=== PATIENT | female | born 1955 | race Caucasian/White ===

== ENCOUNTER 2025-01-07 14:43 | Emergency (ER) | payer MEDICARE, SELFPAY ==
--- NOTE | ~2025-01-07 | CT_ITS ---
CLINICAL HISTORY: head strike, pain, injury CT cervical spine without contrast Comparison: None Findings: Mild multilevel anterolisthesis, degenerative. No fracture. No severe central spinal canal stenosis. No epidural hematoma. Normal thickness of the prevertebral soft tissues. Trace biapical scarring. Impression: No acute findings. This document has been electronically signed by: Beth Suero MD on 01/07/2025 17:14:58
--- NOTE | ~2025-01-07 | XR_ITS ---
CLINICAL HISTORY: pain, injury Radiographs of the right shoulder, 4 views Comparison: None Findings: 5 mm linear ossific fragment at the supraspinatus footplate seen on the Grashey view. The adjacent cortex is disrupted and calcification within the supraspinatus tendon is considered less likely. The osseous structures are otherwise intact. No dislocation. Mild degenerative change. Narrowed acromiohumeral interval may indicate rotator cuff pathology. Bone mineralization is decreased. Soft tissue swelling. Impression: 5 mm linear ossific fragment at the supraspinatus footplate likely indicates a small fracture. This document has been electronically signed by: Beth Suero MD on 01/07/2025 17:48:12
--- NOTE | ~2025-01-07 | CT_ITS ---
CLINICAL HISTORY: head strike, pain, injury CT head without contrast Comparison: None Findings: No acute hemorrhage. No extra-axial fluid collection. No hydrocephalus, mass-effect or herniation. Askew-white differentiation is maintained. White matter is within normal limits for age. No acute orbital pathology. Left frontal scalp laceration. No fracture. The visualized paranasal sinuses are predominantly clear. Opacification of right posterior inferior mastoid air cells could be secondary to an effusion or mastoiditis. The left mastoid air cells are clear. Impression: No acute intracranial findings. This document has been electronically signed by: Beth Suero MD on 01/07/2025 17:15:11
[2025-01-07 14:51] VITALS: BP 148/72; BP 153/73; PULSE 89; PULSE 90; RESP 18; O2SAT 98; O2SAT 99; BMI 21.8
[2025-01-07 15:01] VITALS: BP 143/77; PULSE 86; RESP 16; O2SAT 98
--- NOTE | 2025-01-07 15:20 | ED_ITS ---
HPI - General Adult General Chief complaint: Head Injury Stated complaint: fall + collar Time Seen by Provider: 01/07/25 15:20 Source: patient, EMS and other (patient's friend) Mode of arrival: EMS Limitations: no limitations History of Present Illness ED Provider: Taylor Woodard PA-C HPI narrative: 69 year old female with a past medical history of recent right rotator cuff repair presents to the ED via ambulance after a trip and fall. Patient reports running up concrete steps for a picture at her [address] [place] [id number] when she tripped and fell, hitting her head on a granite / marble stair and her right arm on a different step. She states that she had a headache in the ambulance that has since resolved. Patient reports she also has an abrasion on both shins. She denies loss of consciousness, nausea, vomiting, or dizziness. Patient denies SOB, chest pain, or extremity weakness. Patient states that she has a follow up appointment scheduled with her orthopedist in the coming weeks. MD complaint: Head laceration Location: head, right (shoulder / arm) and lower extremity (bilateral knee abrasions) Radiation: non-radiation Associated symptoms: denies other symptoms Treatments prior to arrival: other (c-collar applied by EMS) Related Data Previous Rx's ?Medication ?Instructions ?Recorded amoxicillin 875 mg-potassium 1 tab PO BID 7 days #14 tabs 01/07/25 clavulanate 125 mg tablet Allergies Allergy/AdvReac Type Severity Reaction Status Date / Time acetaminophen Allergy Hives Verified 01/07/25 14:56 Review of Systems 2 Constitutional: Constitutional: Reports no additional constitutional complaints, Denies chills, Denies fever(s), Reports headache(s) and Denies night sweats Eyes: Eyes: Reports no additional eye complaints, Denies blurry vision, Denies change in vision, Denies diplopia, Denies eye discharge, Denies loss of vision and Denies eye pain ENT: Denies dizziness and Reports headache(s) Comments: scalp laceration Cardiovascular: Cardiovascular: Reports no additional cardiovascular complaints, Denies chest pain, Denies lightheadedness, Denies Loss of Consciousness and Denies dyspnea Respiratory: Respiratory: Reports no additional respiratory complaints and Denies dyspnea Gastrointestinal: Gastrointestinal: Reports no additional gastrointestinal complaints, Denies abdominal pain, Denies melena, Denies hematochezia, Denies change in bowel habits and Denies change in stool character Genitourinary: Genitourinary: Denies hematuria, Denies urinary frequency, Denies dysuria, Denies urinary incontinence, Denies urinary hesitancy and Denies urinary urgency Musculoskeletal: Musculoskeletal: Reports no additional musculoskeletal complaints, Denies numbness and Denies tingling Comments: right shoulder pain right arm pain bilateral knee scrapes Neurologic: Denies dizziness, Reports headache(s), Denies loss of vision, Denies numbness and Denies tingling Psychiatric: Psychiatric: Reports no additional psychiatric complaints Endocrine: Endocrine: Reports no additional endocrine complaints Hematologic/Lymphatic: Hematologic/Lymphatic: Reports no additional hematologic/lymphatic complaints Allergic/Immunologic: Allergic/Immunologic: Reports no additional allergic/immunologic complaints PMFSH Past Medical History Attestation statement: The following information was validated with the patient. (all information validated with the patient's friend) Source: nursing notes reviewed and other (Patient's friend at the bed side provided additional history and confirmed the history provided by the patient.) Social History Social History Advance Directives: No Advance Directives Information Provided: Yes Physical Exam ED Vital Signs: Vital Signs - 24 hr 01/07/25 14:51 01/07/25 15:01 Pulse Rate 89 86 Respiratory Rate 18 16 Blood Pressure 153/73 H 143/77 H Pulse Oximetry 99 98 Oxygen Delivery Method Room Air Room Air BMI result Body Mass Index 21.8 Const General: cooperative, no acute distress, alert and awake Nutritional Appearance: well nourished Orientation/consciousness: patient oriented x3 [facility] Head images: 2 1. 6cm laceration - no active bleeding Ears: hearing grossly normal bilaterally and external ears normal General nose exam: Normal external nose present, no nasal discharge noted and no epistaxis Face and sinus: No abrasion Mouth: Normal oral and palatal mucosa present, no drooling and no muffled voice Eyes General: appearance normal, both eyes and all related structures Periorbital: periorbital findings normal Eyelids: Yes eyelids normal Conjunctivae: conjunctivae normal Pupils: Equal, round and reactive pupils present EOM: EOMs intact bilaterally Neck Neck: Yes normal visual inspection, Yes full ROM and Yes no lymphadenopathy Resp Effort & Inspection: normal respiratory effort and able to speak in complete sentences Skin Other: 5 cm head laceration at top of head Full body images: 2 1. laceration Neuro General: patient oriented x3, moves all extremities and CN's II-XI intact bilaterally Cranial nerves: Yes Equal, round and reactive pupils present Cognition (Neuro): normal cognition Extrem Other: bilateral knee abrasions - no active bleeding, no gaping bruising to the right lateral upper arm full ROM of the right upper extremity General: Yes full ROM and Yes capillary refill normal Right upper extremity: shoulder/upper arm Details: ecchymosis Psych Appearance: grossly normal Mental Status: mental status grossly normal Affect: normal affect Attitude: cooperative Thought process: Normal thought process present Thought content: Normal thought content present Insight: Good insight present (Psych) Medications Administered Discontinued Medications Generic Name Dose Route Start Last Admin Trade Name Freq PRN Reason Stop Dose Admin Diphtheria/Tetanus/Acell Pertussis 0.5 ml 01/07/25 15:39 01/07/25 15:51 Diphth,Pertus(Acell),Tet Adult 0.5 Ml Syringe IM 01/07/25 15:40 0.5 ml .ONCE ONE Administration Procedures Laceration Laceration 1: Site: scalp Size (cm): 6 Description: irregular Depth: simple, single layer Local Anesthetic: lidocaine 1% Amount of anesthesia used (mL): 20 Pre-repair: wound explored, irrigated extensively and deep structures intact Skin layer closed with: other (prolene) Number of sutures: 9 Technique: simple, interrupted Medical Decision Making Medical Decision Making MDM Narrative: Patient is a 69 year old assigned female at with a history of recent right rotator cuff repair presenting to the emergency department today after a fall. Patient's physical exam was as noted in the physical exam portion of this note. Patient's right shoulder x-ray showed a 5mm avulsion fracture of the humerus but was otherwise unremarkable. Patient's CT of the head and c-spine showed no acute process. I spoke with the orthopedic team who stated as long as the patient does not have pain with ROM of the right upper extremity - she does not need to be in a sling and can follow up with her orthopedist. I explained my physical exam findings as well as all test results to the patient and the patient's friend. I answered all questions asked by the patient and the patient's friend. I confirmed the patient has no pain with right shoulder ROM and she stated that she has a sling at home to use as needed from her recent surgery as well as an appointment with her orthopedist coming up. Patient's laceration was repaired, per procedure note, without incident. Patient was brought up to date on tetanus. I stressed the importance of the patient taking her medication as directed (either prescribed or as the over the counter packaging recommends). I stressed the importance of the patient following up with her primary care provider and her orthopedist. I stressed the importance of the patient returning to the emergency department immediately if her symptoms were to worsen or if she were to develop any dizziness, shortness of breath, difficulty breathing, chest pain, blurry vision, loss of vision, nausea, vomiting, abdominal pain, fever, chills, back pain, or any other complaints. Patient and the patient's friend verbalized agreement and understanding with this treatment plan and discharge. Differential Diagnosis Differential Diagnoses: The differential diagnosis associated with the presentation includes Humerus fracture Avulsion fracture Laceration Abrasion Mechanical fall Admission/Observation Consideration of admission/observation: Escalation of care including admission/observation considered Patient would have been admitted to the hospital had her work up had any findings where hospital admission was appropriate and her clinical presentation warranted hospital admission. Consult Healthcare Provider Management of the patient was discussed with: Currency Machine Operator (Spoke with the orthopedic team as noted in the MDM Rationale portion of this note. ) Independent Interpretation I performed an independent interpretation of an: Plain X-Ray and CT Scan Interpretation: My interpretation is in agreement with the radiologist's impression of these imaging studies. LCLINICAL HISTORY: pain, injury Radiographs of the right shoulder, 4 views Comparison: None Findings: 5 mm linear ossific fragment at the supraspinatus footplate seen on the Grashey view. The adjacent cortex is disrupted and calcification within the supraspinatus tendon is considered less likely. The osseous structures are otherwise intact. No dislocation. Mild degenerative change. Narrowed acromiohumeral interval may indicate rotator cuff pathology. Bone mineralization is decreased. Soft tissue swelling. Impression: 5 mm linear ossific fragment at the supraspinatus footplate likely indicates a small fracture. This document has been electronically signed by: Beth Suero MD on 01/07/2025 17:48:12 Dictated By: Beth Clinton MD Signed By: Electronically signed by Beth Clinton MD 01/07/25 1696 Report Number: [id number]: Total DLP = 703.19 mGy-cm CLINICAL HISTORY: head strike, pain, injury CT head without contrast Comparison: None Findings: No acute hemorrhage. No extra-axial fluid collection. No hydrocephalus, mass- effect or herniation. Askew-white differentiation is maintained. White matter is within normal limits for age. No acute orbital pathology. Left frontal scalp laceration. No fracture. The visualized paranasal sinuses are predominantly clear. Opacification of right posterior inferior mastoid air cells could be secondary to an effusion or mastoiditis. The left mastoid air cells are clear. Impression: No acute intracranial findings. This document has been electronically signed by: Beth Suero MD on 01/07/2025 17:15:11 Dictated By: Beth Clinton MD Signed By: Electronically signed by Beth Clinton MD 01/07/25 1716 Report Number: [id number]: Total DLP = 240.04 mGy-cm CLINICAL HISTORY: head strike, pain, injury CT cervical spine without contrast Comparison: None Findings: Mild multilevel anterolisthesis, degenerative. No fracture. No severe central spinal canal stenosis. No epidural hematoma. Normal thickness of the prevertebral soft tissues. Trace biapical scarring. Impression: No acute findings. This document has been electronically signed by: Beth Suero MD on 01/07/2025 17:14:58 Dictated By: Beth Clinton MD Signed By: Electronically signed by Beth Clinton MD 01/07/25 3612 Radiology Impression Discussion of test interpretation with radiology: I have reviewed the radiologist's reading. Independent Historian Clinical information obtained from an independent historian. History obtained from or confirmed by: Friend (Patient's friend provided additional history and confirmed the history provided by the patient.) and EMS (EMS provided additional history and confirmed the history provided by the patient. ) Prescription Management I considered prescription management with: Antibiotic (given the patient's mechanism of injury - patient prescribed a prophylactic antibiotic.) Critical Care Time Critical Care Time Critical Care Time: Yes Total Critical Care Time: 33 Attestation: I spent 33 minutes of Critical Care Time with this patient. This does not include time spent on separately reported billable procedures. Discharge Plan Discharge Clinical Impression: Laceration of scalp, Fracture, humerus, Abrasion Patient Disposition: Home, Self-Care Instructions: Care For Your Stitches (DC), Laceration (DC) Additional Instructions: Follow up with your primary care provider and your orthopedist as scheduled. Use your sling as needed just as you have been. Take your prophylactic antibiotic as prescribed. You may get your sutures wet but do NOT soak them. Avoid pools or any outdoor bodies of water (lakes, reyes, streams, oceans, etc.) Have your sutures (9) removed in 7-10 days. Once the sutures have been removed and your scabs have fallen off - apply sunscreen to the area every day for 1 full year to reduce scarring. Return to the emergency department immediately if you develop any numbness, tingling, dizziness, shortness of breath, difficulty breathing, chest pain, blurry vision, loss of vision, nausea, vomiting, abdominal pain, fever, chills, back pain, or any other complaints. Please see the information below about our Patient Portal. If you are not yet enrolled in the [facility] Patient Portal, you will receive an enrollment email invitation following your visit to any [facility] care setting. You may also self-enroll in the Patient Portal by visiting our website: [email or web address] The following information is required to access the Patient Portal: - Your [facility] Medical Record Number - Your personal home email address (must match what is in your electronic medical record, Registration staff can assist with this) - Name - Date of Capabilities of the Patient Portal: - Message some providers - View upcoming appointments - Access your health summary, medical history, and visit history - View current conditions and allergies - View procedure and lab results - View your medications, including guidelines, side effects, and precautions - Complete pre-appointment questionnaires requested by your provider - Ready summary reports of your office visits and procedures To access the Patient Portal Mobile [employer], follow these directions: - Search [employer] [place] in the [employer] Store or [employer] Store - Download the [employer] - Search for [facility] - Enter your login/password Prescriptions: New amoxicillin-pot clavulanate 875-125 mg tablet 1 tab PO BID 7 Days Qty: 14 0RF Print Language: Yakut
--- NOTE | 2025-01-07 15:24 | PC.NURSE ---
Patient presents via EMS from a local class [place] after tripping and falling, striking her upper forehead on a cement step. Denies LOC or thinners. C-collar intact. Lac noted to forehead with bleeding controlled. Alert and oriented. No neuro deficits noted. Lungs clear bilat. Respirations even and non-labored. Abdomen soft, non-tender with positive bowel sounds. No LE edema noted.
--- OUTSIDE RECORDS SUMMARY | 2025-01-07 15:43 | XMS_ITS ---
Author Name [facility] Organization Unknown Results Test Name/Text Value Interpretation Date Range Source eGFR 60mL/min Normal [id number] - [facility] BUN/Creat Ratio 20.8 Above high normal 623193941113 10 - 20 [facility] Calcium Level 9.8mg/dL Normal [id number] 8.7 - 10.4 CT [facility] Sodium Level 141mmol/L Normal [id number] 136 - 145 [facility] Glucose Level 81mg/dL Normal [id number] 74 - 106 [facility] Creatinine 0.77mg/dL Normal [id number] 0.6 - 1 [facility] H Anion Gap 7mmol/L Normal 934339235521 6 - 14 [facility] BUN 16mg/dL Normal [id number] 9 - 23 [facility] CO2 30mmol/L Normal [id number] 20 - 31 [facility] Chloride 104mmol/L Normal [id number] 98 - 107 [facility] eGFR Afri-Amer 60mL/min Normal [id number] - [facility] Potassium Level 4.2mmol/L Normal [id number] 3.5 - 5.1 C [facility] RBC 4.01mill/mm3 Below low normal [id number] 4.2 - 5 .4 [facility] Platelet 235thous/mm3 Normal [id number] 150 - 450 [facility] MCH 31.5pg Above high normal [id number] 27 - 31 [facility] [place] # 0.6thous/mm3 Normal [id number] 0 - 0.9 [facility] Eos % 2.7% Normal [id number] 0 - 6 [facility] RDW 12.9% Normal [id number] 11.5 - 14 [facility] Gran % 52.6% Normal [id number] 40 - 74 [facility] Baso % 0.5% Normal [id number] 0 - 1 [facility] Gran # 2.8thous/mm3 Normal [id number] 1.5 - 6.6 [facility] [place] % 11.1% Normal [id number] 0 - 12 [facility] HCT 37.6% Normal [id number] 37 - 47 [facility] Eos # 0.1thous/mm3 Normal [id number] 0 - 0.6 [facility] Lymph % 33.1% Normal [id number] 17 - 48 [facility] WBC 5.3thous/mm3 Normal [id number] 4 - 10.5 [facility] MCV 93.7fL Normal [id number] 78 - 100 [facility] Lymph # 1.8thous/mm3 Normal [id number] 1.5 - 3.5 [facility] MPV 8.4fL Normal [id number] 6 - 9.5 [facility] Baso # 0thous/mm3 Normal [id number] 0 - 0.1 [facility] H MCHC 33.6g/dL Normal [id number] 32 - 36 [facility] HGB 12.6g/dL Normal [id number] 12.5 - 16 [facility] History of Medication Use Medication Directions Dispensed Refills Start Date End Date Stat us oxyCODONE 5 mg oral tablet oxyCODONE 5 mg oral tablet 11/18/2024 11/21/2024 active escitalopram 10 mg oral tablet escitalopram 10 mg oral tablet 11/10/2024 active latanoprost 0.005% ophthalmic solution latanoprost 0.005% ophthalmic solution 11/10/2024 active Allergies Allergen Reaction Severity Comment Documented Date Source Statu s ACETAMINOPHEN [facility] Active Problems Problem Status Onset Date Problem Type Date of Resoluti on Source PAIN IN RIGHT SHOULDER active 2024-12-02 ProblemAct [facility] COMPLETE ROTATOR CUFF TEAR OR RUPTURE OF RIGHT SHOULDER, NOT SPECIFIED TRAUMATIC active 2024-12-02 ProblemAct [facility] Glaucoma (disorder) active ProblemAct [facility] Encounters Encounter Type Encounter Reason Primary Diagnosis Location Date Ambulatory [facility] 12/30/2024 Ambulatory [facility] 12/02/2024 Ambulatory MODIFY Complete rotator cuff tear or rupture of right shoulder, not specified as traumatic [facility] 11/21/2024 Ambulatory m75.121, z01.812 [facility] 11/11/2024 Ambulatory [facility] 11/10/2024 Ambulatory SCREEN [facility] 2023 Ambulatory RIGHT FOOT PAIN [facility] 1 Ambulatory CAT.0 RIGHT BREAST [facility] 06/03/2023 Ambulatory SCREEN [facility] 2022 Ambulatory Z23 [facility] 2020 Care Team Organization Name Specialty Phone Email Start Date End Da te [facility] 11/14/2024 [facility] 11/03/2024 [facility] 10/29/2024 [facility] [employer] 10/20/2023 01/17/2024 [facility] 05/28/2023 05/28/2023 [facility] 05/28/2023 [facility] 03/27/2023 [facility] ADT 03/27/2023
[2025-01-07] MEDS: Diphth,Pertus(ACell),Tet Adult 0.5 ML SYRINGE IM (15:51)
--- NOTE | 2025-01-07 18:19 | PC.NURSE ---
Sutures applied to head lac. Patient tolerating well.
--- NOTE | 2025-01-07 18:57 | MHC.EDTECH ---
Wasn't able to do the patient vitals for 6pm due to getting her scalp stitched up
[2025-01-07] MEDS: Lidocaine HCl 1 % MPF 5 ML VIAL 20 ML SUBCUT (19:37)
[2025-01-07 19:58] VITALS: BP 143/77; PULSE 86; RESP 16; TEMP 36.7; O2SAT 98
== END 2025-01-07 20:00 | disposition home or self-care (01) ==
PROVIDERS: Emergency Provider Emergency Medicine
DX: S42.301A Unspecified fracture of shaft of humerus, right arm, initial encounter for closed fracture (principal); S01.01XA Laceration without foreign body of scalp, initial encounter; S80.212A Abrasion, left knee, initial encounter; S80.211A Abrasion, right knee, initial encounter; M54.2 Cervicalgia; R51.9 Headache, unspecified; M25.562 Pain in left knee; M25.561 Pain in right knee; X58.XXXA Exposure to other specified factors, initial encounter; W01.0XXA Fall on same level from slipping, tripping and stumbling without subsequent striking against object, initial encounter; Y93.9 Activity, unspecified; Y92.9 Unspecified place or not applicable; Y99.8 Other external cause status; Z23 Encounter for immunization
CPT/HCPCS: 12032; 70450; 72125; 73030; 90471; 90715; 99284; J2003

== ENCOUNTER → 2025-01-07 15:20 | Outpatient (BNV) | payer MEDICARE, SELFPAY | PROVIDERS: Visit Provider Radiology Diagnostic Radiology | DX: R51.9 Headache, unspecified (principal); M61.511 Other ossification of muscle, right shoulder | CPT/HCPCS: 70450; 72125; 73030 ==